=== PATIENT | female | born 1985 | race Caucasian/White ===

== ENCOUNTER 2019-11-17 13:24 | Emergency (ER) | payer OTHER, SELFPAY ==
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
[2019-11-17 13:51] VITALS: BP 124/85; PULSE 86; RESP 18; TEMP 36.7; O2SAT 99
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
[2019-11-17] MEDS: KETOROLAC (*BKC) 60 MG/2 ML VIAL IM (14:29)
== END 2019-11-17 14:59 | disposition home or self-care (01) ==
PROVIDERS: Emergency Provider Nurse Practitioner Family
DX: M25.511 Pain in right shoulder (principal); V49.50XA Passenger injured in collision with unspecified motor vehicles in traffic accident, initial encounter; M79.7 Fibromyalgia
CPT/HCPCS: 72050; 72170; 73030; 96372; 99214; G0463; J1885

== ENCOUNTER 2023-10-27 16:57 | Emergency (ER) | payer OTHER, SELFPAY ==
[2023-10-27 17:04] VITALS: BP 123/62; PULSE 92; RESP 20; TEMP 36.3; O2SAT 99
--- NOTE | 2023-10-27 17:26 | ED.URI ---
HPI - URI/Sore Throat General Chief Complaint: Upper Respiratory Infection Stated Complaint: respiratory issues/sob Time Seen by Provider: 10/27/23 17:26 Source: patient Mode of arrival: ambulatory Limitations: no limitations History of Present Illness HPI Narrative: 38-year-old female presented for complaint of cough, nasal congestion and drainage for 2 weeks. Endorses intermittent sob. Endorses requires albuterol inhaler several times a day, also using a daily antihistamine. She denies chest pain, palpitations, wheezing, nausea, vomiting, fevers or chills. Related Data Home Medications Medication Instructions Recorded Confirmed Cymbalta 11/17/19 omeprazole 11/17/19 tizanidine 11/17/19 albuterol sulfate 90 mcg/actuation inhalation 10/27/23 aerosol inhaler Allergies Allergy/AdvReac Type Severity Reaction Status Date / Time acetaminophen [From Midrin] AdvReac Nausea Verified 11/17/19 13:56 dichloralphenazone AdvReac Nausea Verified 11/17/19 13:56 [From Midrin] isometheptene [From Midrin] AdvReac Nausea Verified 11/17/19 13:56 Penicillins AdvReac Unknown Verified 11/17/19 13:56 Review of Systems Review of Systems: CONSTITUTIONAL: Denies body aches, fever, chills, or sweats. EYES: Denies visual changes, redness, or discharge. ENT: reports rhinorrhea, congestion, denies sore throat, or otalgia. CARDIOVASCULAR: Denies chest pain, palpitations, or edema. RESPIRATORY: Reports cough, sob, denies wheezing. GASTROINTESTINAL: Denies abdominal pain, nausea, vomiting, or diarrhea. MUSCULOSKELETAL: Denies back pain, joint pain, or myalgia. NEUROLOGIC: Denies headache, numbness, tingling, or weakness. All systems reviewed & are unremarkable except as noted in HPI and below [facility] Past Medical History Medical History (Updated 10/27/23 @ 17:36 by Gabriella Lawson APRN) Asthma Comments At time of signature, I have reviewed and agree with nursing past medical, surgical, social and family history unless otherwise noted. Please see nursing chart for further information. There is no relevant family history pertinent to the presenting complaint Exam Narrative: GENERAL: Well-appearing, in no acute distress. EYES: EOMI. No redness or drainage. Conjunctivae normal. ENT: Mucous membranes pink and moist. nasal congestion noted. Right TM normal light reflex, left TM mildly erythematous with clear effusion. Throat normal. Uvula midline. NECK: Normal AROM. Supple. CHEST: No respiratory distress. Lungs clear to all cintron. HEART: Regular rate and rhythm. No murmur appreciated. SKIN: Warm, dry, no rash. Capillary refill normal. Normal skin turgor. NEURO: Alert and oriented x3. Gait steady. PSYCH: Normal affect. Course Course Emergency Course: Patient is aware of diagnosis, understands and agrees to treatment plan. Anticipatory guidance given. Patient agrees to follow-up as directed and is aware of reasons to seek care at the emergency department. Portions of this record may have been created with voice recognition software Level of Care: Express Care Visit Vital Signs Vital signs: Vital Signs Temperature 97.3 F L 10/27/23 17:04 Pulse Rate 92 10/27/23 17:04 Respiratory Rate 20 10/27/23 17:04 Blood Pressure 123/62 10/27/23 17:04 Pulse Oximetry 99 10/27/23 17:04 Oxygen Delivery Room Air 10/27/23 17:04 Temperature 97.3 F L 10/27/23 17:04 Pulse Rate 92 10/27/23 17:04 Respiratory Rate 20 10/27/23 17:04 Blood Pressure 123/62 10/27/23 17:04 Pulse Oximetry 99 10/27/23 17:04 Oxygen Delivery Room Air 10/27/23 17:04 MDM - URI/Sore Throat MDM Narrative Medical decision making narrative: Discussed physical exam findings. Advised supportive measures and signs/symptoms to go to the ER. Pt is appropriate for outpt treatment and f/u. Differential Diagnosis Differential diagnosis: Likely upper respiratory infection, otitis media, sinusitis,
== END 2023-10-27 17:37 | disposition home or self-care (01) ==
PROVIDERS: Emergency Provider Nurse Practitioner Family
DX: J01.90 Acute sinusitis, unspecified (principal); J45.909 Unspecified asthma, uncomplicated
CPT/HCPCS: 99213; G0463